=== PATIENT | female | born 1980 | race Hispanic/Latino ===

== ENCOUNTER → 2022-12-07 | Day surgery (SDC) | payer OTHER ==
[~2022-12-07] MED LIST: ACETAMINOPHEN 1000 MG/100 ML 100 ML IV ONE; BUPIVACAINE HCL 0.5% INJ 30 ML VIAL INJ ONE; DEXAMETHASONE SOD PHOS 10 MG/1 ML VIAL ONE; DEXAMETHASONE SOD PHOS INJ 4 MG/ML SDV ONE; FENTANYL CITRATE/PF 100MCG/2 ML INJ ONE; HYDROCODONE/APAP 5MG-325MG TAB ONE; KETOROLAC TROMETHAMINE 30 MG/ML VIAL ONE; LACTATED RINGER'S 1,000 ML ONE; LIDOCAINE HCL 2% LOCAL INJ 5 ML SDV VIAL INJ ONE; ONDANSETRON HCL INJ 2MG/ML 2ML 2 MG/ML VIAL ONE; POVIDONE IODINE 0.05% 0.05 % ML PO ONE; PROPOFOL IV EMULSION 10 MG/ML 20 ML VIAL ONE; SEVOFLURANE INHAL SOLN 250 ML PEN BTL ONE; [UNRECOGNIZED DRUG - OTHER] PO
[2022-12-07 13:55] VITALS: TEMP 97.8
[2022-12-07] MEDS: HYDROMORPHONE 1MG/1ML INJ ONE ×2 (14:13→14:18)
[2022-12-07 15:25] VITALS: BP 114/76; PULSE 73; RESP 18; O2SAT 97
== END | disposition home or self-care (01) ==
LOC: OR 12:27
PROVIDERS: ATTEND Specialist
DX: S52.532A Colles' fracture of left radius, initial encounter for closed fracture (principal); W19.XXXA Unspecified fall, initial encounter; Z68.41 Body mass index [BMI] 40.0-44.9, adult
CPT/HCPCS: 76000; 81025; C1713; J0690; J1100; J1170; J1885; J2001; J2405